=== PATIENT | male | born 1950 | race Caucasian/White ===

== ENCOUNTER 2016-12-03 16:33 | Emergency (ER) | payer SELFPAY ==
[~2016-12-03] VITALS: Wt 68.0 kg
[~2016-12-03 16:33] MED LIST: CEPHALEXIN500 M1 PO; CIPRO500 MG PO; NATURE'S BLEND F1 MG PO; THERA TABS1 TAB PO; VITAMIN B-11 TAB PO
[2016-12-03] MEDS ORDERED: NAPROSYN500 MG PO (17:53)
== END 2016-12-03 18:20 | disposition home or self-care (01) ==
LOC: ED 16:33
DX: S22.32XA Fracture of one rib, left side, initial encounter for closed fracture (principal); S22.31XA Fracture of one rib, right side, initial encounter for closed fracture; S39.013A Strain of muscle, fascia and tendon of pelvis, initial encounter; F12.10 Cannabis abuse, uncomplicated; F17.200 Nicotine dependence, unspecified, uncomplicated; F15.10 Other stimulant abuse, uncomplicated; W18.39XA Other fall on same level, initial encounter; Y93.89 Activity, other specified; Y92.89 Other specified places as the place of occurrence of the external cause; Y99.9 Unspecified external cause status

== ENCOUNTER 2016-12-14 20:10 | Emergency (ER) | payer SELFPAY ==
[~2016-12-14] VITALS: Ht 177.8 cm; Wt 72.6 kg
[~2016-12-14 20:10] MED LIST changes: +NAPROSYN500 MG PO
[2016-12-14 21:07] LABS: BASO # 0.1 10*3/uL (0.0-0.1); BASO % 0.6 % (0.0-1.0); EOS # 0.1 10*3/uL (0.0-0.4); EOS % 0.8 % (1.0-4.0); HEMATOCRIT 39.1 % (42.0-52.0); HEMOGLOBIN 12.8 g/dl (14.0-18.0); IG # 0.1 10*3/uL (0.0-0.1); LYMPH # 1.2 10*3/uL (1.3-4.4); LYMPH % 14.3 % (27.0-41.0); MEAN CELL VOLUME 84.3 fl (80.0-94.0); MEAN CORPUSCULAR HGB 27.6 pg (27.0-31.0); MEAN CORPUSCULAR HGB CONC 32.7 g/dl (33.0-37.0); MEAN PLATELET VOLUME 9.3 fl (9.6-12.3); MONO # 1.3 10*3/uL (0.1-1.0); MONO % 14.9 % (3.0-9.0); NEUT # 5.8 10*3/uL (2.3-7.9); PLATELET COUNT AUTOMATED 198 10*3/uL (130-400); RED BLOOD COUNT 4.64 10*6/uL (4.50-5.90); RED CELL DISTRI WIDTH 15.3 % (0-14.5); WHITE BLOOD COUNT 8.5 10*3/uL (4.8-10.8)
[2016-12-14 21:22] LABS: ALBUMIN 3.3 gm/dl (3.1-4.5); ALKALINE PHOSPHATASE 97 U/L (45-117); BILIRUBIN, TOTAL 0.6 mg/dl (0.2-1.0); BUN 12 mg/dl (7-24); CARBON DIOXIDE 24 mmol/L (21-32); CHLORIDE 92 mmol/L (98-107); EST GLOM FILT AFRICAN AMERICAN > 60 ml/min; GLUCOSE 109 mg/dL (65-99); INTERNATIONAL NORM RATIO 1.1 (2.0-3.5); POTASSIUM 4.3 mmol/L (3.5-5.1); PROTHROMBIN TIME 12.1 SECONDS (9.0-12.4); SGOT/AST 18 IU/L (3-35); SGPT/ALT 12 U/L (12-78); SODIUM 128 mmol/L (136-145); TOTAL PROTEIN 7.7 gm/dL (6.4-8.2)
== END 2016-12-14 23:43 | disposition short-term general hospital (02) ==
LOC: ED 20:10
PROVIDERS: Emergency Medicine Emergency Medical Services
DX: R33.9 Retention of urine, unspecified (principal); R31.9 Hematuria, unspecified; Q54.9 Hypospadias, unspecified; F12.10 Cannabis abuse, uncomplicated; F17.200 Nicotine dependence, unspecified, uncomplicated

== ENCOUNTER → 2017-01-05 | Outpatient (CLI) | payer MEDICARE | END | disposition home or self-care (01) | LOC: LAB 12:45 → MRI 13:00 | DX: Z01.818 Encounter for other preprocedural examination (principal); D40.0 Neoplasm of uncertain behavior of prostate; M54.5 Low back pain; M25.559 Pain in unspecified hip ==

== ENCOUNTER 2017-01-11 17:07 | Inpatient (IN) | payer MEDICARE ==
[~2017-01-11] VITALS: Ht 177.8 cm; Wt 66.5 kg
[2017-01-11 17:10] VITALS: BP 128/76
[2017-01-11] MEDS ORDERED: FLOMAX0.4 MG PO (17:12)
[2017-01-11] MEDS ORDERED: FINASTERIDE5 M1 PO (17:12)
[2017-01-11 18:04] LABS: BASO % 0.4 % (0.0-1.0); EOS # 0.1 10*3/uL (0.0-0.4); EOS % 0.7 % (1.0-4.0); HEMATOCRIT 36.8 % (42.0-52.0); HEMOGLOBIN 11.6 g/dl (14.0-18.0); IG # 0.1 10*3/uL (0.0-0.1); LYMPH # 0.8 10*3/uL (1.3-4.4); LYMPH % 9.3 % (27.0-41.0); MEAN CELL VOLUME 84.6 fl (80.0-94.0); MEAN CORPUSCULAR HGB 26.7 pg (27.0-31.0); MEAN CORPUSCULAR HGB CONC 31.5 g/dl (33.0-37.0); MEAN PLATELET VOLUME 9.5 fl (9.6-12.3); MONO # 0.8 10*3/uL (0.1-1.0); NEUT # 6.4 10*3/uL (2.3-7.9); NEUT % 78.7 % (47.0-73.0); PLATELET COUNT AUTOMATED 227 10*3/uL (130-400); RED BLOOD COUNT 4.35 10*6/uL (4.50-5.90); RED CELL DISTRI WIDTH 14.6 % (0-14.5); WHITE BLOOD COUNT 8.1 10*3/uL (4.8-10.8)
[2017-01-11 18:13] LABS: BILIRUBIN NEGATIVE (NEGATIVE); BLOOD 1+ (NEGATIVE); CLARITY SL CLOUDY (CLEAR); COLOR YELLOW (YELLOW); GLUCOSE NEGATIVE (NEGATIVE); KETONE NEGATIVE (NEGATIVE); LEUKO ESTERASE 3+ (NEGATIVE); NITRITE NEGATIVE (NEGATIVE); PH 6.5 (5.0-9.0); PROTEIN NEGATIVE (NEGATIVE); SPECIFIC GRAVITY <= 1.005 (1.005-1.030); UROBILINOGEN 0.2 E.U./dl (0.2-1.0)
[2017-01-11 18:18] LABS: BACTERIA 4+; RBC 0-2 rbc/hpf (0-2); URINE REFLEX COMMENT YES (NO); WBC TNTC wbc/hpf (0-5)
[2017-01-11 18:20] LABS: ALKALINE PHOSPHATASE 129 U/L (45-117); BILIRUBIN, TOTAL 0.9 mg/dl (0.2-1.0); BUN 8 mg/dl (7-24); CARBON DIOXIDE 27 mmol/L (21-32); CHLORIDE 96 mmol/L (98-107); EST GLOM FILT AFRICAN AMERICAN > 60 ml/min; GLUCOSE 99 mg/dL (65-99); POTASSIUM 3.8 mmol/L (3.5-5.1); SGOT/AST 23 IU/L (3-35); SGPT/ALT 16 U/L (12-78); SODIUM 132 mmol/L (136-145); TOTAL PROTEIN 8.6 gm/dL (6.4-8.2)
[2017-01-11 21:08] VITALS: BP 144/89
[2017-01-12] VITALS: BP 130/75
[2017-01-12 06:40] LABS: BASO % 0.4 % (0.0-1.0); EOS # 0.1 10*3/uL (0.0-0.4); EOS % 1.7 % (1.0-4.0); HEMATOCRIT 32.3 % (42.0-52.0); HEMOGLOBIN 10.3 g/dl (14.0-18.0); IG # 0.1 10*3/uL (0.0-0.1); LYMPH # 0.9 10*3/uL (1.3-4.4); LYMPH % 12.6 % (27.0-41.0); MEAN CELL VOLUME 85.4 fl (80.0-94.0); MEAN CORPUSCULAR HGB 27.2 pg (27.0-31.0); MEAN CORPUSCULAR HGB CONC 31.9 g/dl (33.0-37.0); MEAN PLATELET VOLUME 9.5 fl (9.6-12.3); MONO # 0.8 10*3/uL (0.1-1.0); MONO % 10.7 % (3.0-9.0); NEUT # 5.5 10*3/uL (2.3-7.9); NEUT % 73.4 % (47.0-73.0); PLATELET COUNT AUTOMATED 190 10*3/uL (130-400); RED BLOOD COUNT 3.78 10*6/uL (4.50-5.90); RED CELL DISTRI WIDTH 14.6 % (0-14.5); WHITE BLOOD COUNT 7.5 10*3/uL (4.8-10.8)
[2017-01-12 07:17] LABS: ALBUMIN 2.5 gm/dl (3.1-4.5); ALKALINE PHOSPHATASE 99 U/L (45-117); BILIRUBIN, TOTAL 0.5 mg/dl (0.2-1.0); BUN 12 mg/dl (7-24); CARBON DIOXIDE 27 mmol/L (21-32); CHLORIDE 98 mmol/L (98-107); CHOLESTEROL 85 mg/dL (<200); EST GLOM FILT AFRICAN AMERICAN > 60 ml/min; FREE T4 1.15 ng/dl (0.76-1.46); GLUCOSE 87 mg/dL (65-99); HDL CHOLESTEROL 31 mg/dl (40-60); LDL CHOLESTEROL 37 mg/dL (9-159); MAGNESIUM 1.8 mg/dL (1.5-2.1); PHOSPHOROUS 3.1 mg/dL (2.5-4.9); POTASSIUM 3.7 mmol/L (3.5-5.1); SGOT/AST 16 IU/L (3-35); SGPT/ALT 12 U/L (12-78); SODIUM 134 mmol/L (136-145); TOTAL PROTEIN 7.1 gm/dL (6.4-8.2); TRIGLYCERIDES 85 mg/dl (<150); VLDL CHOLESTEROL 17 mg/dL (6-40)
[2017-01-12 07:24] LABS: HEMOGLOBIN A1c 5.3 % (4.8-5.6); INTERNATIONAL NORM RATIO 1.2 (2.0-3.5); PROTHROMBIN TIME 12.4 SECONDS (9.0-12.4)
[2017-01-12 07:49] LABS: FOLIC ACID 7.88 ng/mL (>5.38); VITAMIN D, 25-HYDROXY 22.7 ng/mL (30-100)
[2017-01-12 08:00] VITALS: BP 118/75
[2017-01-12 12:00] VITALS: BP 116/84; BP 120/82
[2017-01-12 14:50] VITALS: BP 116/84
[2017-01-12 16:00] VITALS: BP 128/67
== END 2017-01-12 20:32 | DRG 535 ==
LOC: ED 17:07 → 4E 20:08 → EDHOLD 20:08 → 4E 20:19
PROVIDERS: Family Medicine; Registered Nurse
DX: S32.501A Unspecified fracture of right pubis, initial encounter for closed fracture (principal); E43 Unspecified severe protein-calorie malnutrition; S32.110A Nondisplaced Zone I fracture of sacrum, initial encounter for closed fracture; E87.8 Other disorders of electrolyte and fluid balance, not elsewhere classified; N30.01 Acute cystitis with hematuria; E87.1 Hypo-osmolality and hyponatremia; F17.200 Nicotine dependence, unspecified, uncomplicated; D64.9 Anemia, unspecified; W06.XXXA Fall from bed, initial encounter; M89.9 Disorder of bone, unspecified; E55.9 Vitamin D deficiency, unspecified; Z83.3 Family history of diabetes mellitus; Y93.89 Activity, other specified; Z71.6 Tobacco abuse counseling; Y92.89 Other specified places as the place of occurrence of the external cause; Y99.8 Other external cause status; Z68.22 Body mass index [BMI] 22.0-22.9, adult; F10.10 Alcohol abuse, uncomplicated; N40.1 Benign prostatic hyperplasia with lower urinary tract symptoms

== ENCOUNTER → 2017-05-06 | Outpatient (CLI) | payer MEDICARE ==
[~2017-05-06] MED LIST changes: +FINASTERIDE5 M1 PO; +FLOMAX0.4 MG PO
== END | disposition home or self-care (01) ==
LOC: US 12:58
DX: K82.8 Other specified diseases of gallbladder (principal)

== ENCOUNTER 2018-03-18 21:53 | Inpatient (IN) | payer MEDICARE ==
[~2018-03-18] VITALS: Ht 177.8 cm; Wt 68.1 kg
--- NOTE | ~2018-03-18 | EKG ---
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
--- NOTE | ~2018-03-18 | PROC NOTE ---
[place], [place] PROCEDURE NOTE NAME: MORENO DOMINGUEZ UNIT #: [id number] ROOM: 427 DOCTOR: QUETA GUTIERREZ BIRTHDATE: [birth year] DOS: 03/24/2018 Unit number 4E. Room number 427, bed 1. ORDERING PHYSICIAN: Milind Harris DO HISTORY: The patient is a 67-year-old male admitted to the ED following a fall in his home. The patient presents with chief complaint of weakness and primary diagnosis of hyponatremia and unable to ambulate. The patient has previous medical history significant for multiple falls. The patient referred for MBS due to patient complains of difficulty swallowing. Chart review shows the patient is afebrile and presents with white blood cell count within normal limits. Per nursing note dated 03/24/2018 "breakfast sandwich removed after starting to cough/questionable aspiration." The patient interviewed prior to initiation of swallow study. He reports difficulty with foods and liquids, stating that he coughs throughout meals. He reports he has been eating less because of this. The patient reports history of alcohol use and smoking. Oral/neck showed oral skills within functional limits and a right-sided lingual deviation. The patient with nonproductive cough at baseline. The patient stated he has upper and lower dentures, but was edentulous during evaluation. METHODS AND MATERIALS: The patient was positioned in the lateral plane and the exam was viewed under fluoroscopy and was videotaped. The patient was administered applesauce with liquid barium, banana with liquid barium, cookie with liquid barium and sips with honey like, nectar like and thin liquid barium. ORAL PHASE: The patient demonstrated oral skills that were within functional limits. Mastication of cookie and banana was appropriate and manipulation of bolus during the oral phase with timely and functional. Premature pharyngeal spillage was observed with trials of thin liquid barium. The patient was asked to contain liquids in his oral cavity until directed to swallow, but liquid contents were observed at the level of the vallecula prior to swallow initiation with liquids via straw and cup. The patient required multiple swallows to clear the oral cavity. Trace amounts of low residue remained. PHARYNGEAL PHASE: The patient demonstrated a pharyngeal phase that is within functional limits, initiation of the pharyngeal swallow was delayed to the level of the vallecula across all consistencies. The patient demonstrated multiple swallows to clear all evaluated consistencies. No penetration or aspiration was observed during trial with applesauce, banana, cookie, honey like, and nectar like consistencies. Trace amounts of penetration were observed during one sip of thin liquid barium via cup. The patient was cued to re-swallow which cleared the laryngeal vestibule. Trace amounts of pharyngeal residue remained following each consistency. ESOPHAGEAL PHASE: The phase was not formally assessed during the examination. IMPRESSION: This patient demonstrates an oropharyngeal swallow that is within functional limits. The patient demonstrated adequate control manipulation during the oral phase with solids and thickened liquids. Premature pharyngeal [place], [place] PROCEDURE NOTE NAME: MORENO DOMINGUEZ UNIT #: [id number] ROOM: 427 DOCTOR: QUETA GUTIERREZ BIRTHDATE: [birth year] entry was observed during sips of thin liquid barium. The patient able to tolerate premature entry. Trace penetration was observed with one sip of thin liquid barium via cup; however, the patient was able to clear material for additional swallows. No penetration or aspiration was observed with remaining consistencies. The patient presents with functional and safe oropharyngeal swallow. RECOMMENDATIONS: The patient is recommended a regular diet with thin liquid. The patient to utilize safe swallowing strategies throughout meals. The patient is upright during all p.o. intake, take small bites and sips and produce volitional cough and throat clear after every 1-2 swallows. ADDITIONAL FOLLOWUP: Speech therapy to follow to ensure tolerance and safety of recommended diet throughout a meal. Treatment to be initiated targeting tongue base and pharyngeal strengthening to further increase safety of swallow. Thank you for your consultation. Queta Gutierrez CM:PROCNOTE:PROCEDURE NOTE [id number] QUETA GUTIERREZ
--- NOTE | ~2018-03-18 | EKG ---
[place], [place] ELECTROCARDIOGRAM REPORT NAME: MORENO DOMINGUEZ UNIT #: [id number] ROOM: 427 DOCTOR: MIRTA DRAFT REPORT BIRTHDATE: [birth year] [facility] Test Date: 2018-03-21 Test Time: 02:44:09 Pat Name: MORENO DOMINGUEZ Department: Room: 427 1 Gender: M [employer] Technician: Cathryn Matos : 1950 Requested By: BRANDIN REYES Order Number: [id number] Reading MD: Howard Lyons MD Measurements Intervals [place] Rate: 91 P: 61 [place]: 127 QRS: 28 QRSD: 76 T: 72 QT: 401 QTc: 494 Interpretive Statements Sinus rhythm Anteroseptal infarct, age indeterminate Compared to ECG 03/18/2018 22:22:50 Myocardial infarct finding now present Sinus tachycardia no longer present Atrial abnormality no longer present Left-axis deviation no longer present Electronically Signed On 03-21-2018 4:18:57 PDT by Howard Lyons MD CM:EKGRPT:ELECTROCARDIOGRAM REPORT [id number] BRANDIN GAUTAM DRAFT REPORT BRANDIN RYEES DO
[2018-03-18 21:59] VITALS: BP 102/72
[2018-03-18 22:26] LABS: BASO % 0.3 % (0.0-1.0); EOS # 0.1 10*3/uL (0.0-0.4); EOS % 0.7 % (1.0-4.0); HEMOGLOBIN 19.6 g/dl (14.0-18.0); LYMPH # 0.8 10*3/uL (1.3-4.4); LYMPH % 6.3 % (27.0-41.0); MEAN CELL VOLUME 84.2 fl (80.0-94.0); MEAN CORPUSCULAR HGB CONC 34.4 g/dl (33.0-37.0); MEAN PLATELET VOLUME 12.3 fl (9.6-12.3); NEUT # 10.1 10*3/uL (2.3-7.9); PLATELET COUNT AUTOMATED 104 10*3/uL (130-400); RED BLOOD COUNT 6.77 10*6/uL (4.50-5.90); RED CELL DISTRI WIDTH 15.7 % (0-14.5); WHITE BLOOD COUNT 12.2 10*3/uL (4.8-10.8)
[2018-03-18 22:30] VITALS: BP 101/73
[2018-03-18 22:38] LABS: ACT PARTIAL THROMBO TIME 33.4 SECONDS (20.8-31.5); INTERNATIONAL NORM RATIO 1.6 (2.0-3.5)
[2018-03-18 22:50] LABS: ALBUMIN 3.5 gm/dl (3.1-4.5); ALKALINE PHOSPHATASE 134 U/L (45-117); BUN 38 mg/dl (7-24); CHLORIDE 81 mmol/L (98-107); CREATININE 2.02 mg/dL (0.70-1.30); LIPASE 270 U/L (73-393); POTASSIUM 5.9 mmol/L (3.5-5.1); SGOT/AST 211 IU/L (3-35); SGPT/ALT 68 U/L (12-78); TOTAL PROTEIN 10.6 gm/dL (6.4-8.2)
[2018-03-18 22:51] LABS: TROPONIN I < 0.015 ng/ml (<0.045)
[2018-03-18 22:52] LABS: SODIUM 114 mmol/L (136-145)
[2018-03-18 23:02] VITALS: BP 100/72
[2018-03-18 23:07] LABS: CPK 3876 U/L (39-308)
[2018-03-18 23:33] VITALS: BP 100/76
[2018-03-19] VITALS (7 sets, daily range): BP systolic 78–115; BP diastolic 50–80
[2018-03-19 03:09] LABS: BASO % 0.1 % (0.0-1.0); EOS % 0.3 % (1.0-4.0); HEMATOCRIT 46.2 % (42.0-52.0); HEMOGLOBIN 15.9 g/dl (14.0-18.0); LYMPH # 0.6 10*3/uL (1.3-4.4); LYMPH % 5.6 % (27.0-41.0); MEAN CELL VOLUME 84.5 fl (80.0-94.0); MEAN CORPUSCULAR HGB 29.1 pg (27.0-31.0); MEAN CORPUSCULAR HGB CONC 34.4 g/dl (33.0-37.0); MEAN PLATELET VOLUME 12.8 fl (9.6-12.3); MONO # 1.2 10*3/uL (0.1-1.0); MONO % 11.2 % (3.0-9.0); NEUT # 8.7 10*3/uL (2.3-7.9); NEUT % 81.5 % (47.0-73.0); PLATELET COUNT AUTOMATED 78 10*3/uL (130-400); RED BLOOD COUNT 5.47 10*6/uL (4.50-5.90); RED CELL DISTRI WIDTH 14.6 % (0-14.5); WHITE BLOOD COUNT 10.7 10*3/uL (4.8-10.8)
[2018-03-19 03:16] LABS: INTERNATIONAL NORM RATIO 1.5 (2.0-3.5)
[2018-03-19 03:39] LABS: ALBUMIN 2.5 gm/dl (3.1-4.5); CREATININE 1.74 mg/dL (0.70-1.30); FREE T4 1.26 ng/dl (0.76-1.46); PHOSPHOROUS 4.5 mg/dL (2.5-4.9); POTASSIUM 5.1 mmol/L (3.5-5.1); TOTAL PROTEIN 7.5 gm/dL (6.4-8.2)
[2018-03-19 03:50] LABS: THYROID STIM HORMONE (HS) 1.88 uIU/ml (0.358-4.75)
[2018-03-19 06:36] LABS: VITAMIN D, 25-HYDROXY 4.7 ng/mL (30-100)
[2018-03-19 08:32] LABS: BILIRUBIN 1+ (NEGATIVE); BLOOD 3+ (NEGATIVE); CLARITY CLOUDY (CLEAR); COLOR YELLOW (YELLOW); GLUCOSE NEGATIVE (NEGATIVE); KETONE TRACE (NEGATIVE); LEUKO ESTERASE 3+ (NEGATIVE); NITRITE NEGATIVE (NEGATIVE); SPECIFIC GRAVITY 1.015 (1.005-1.030)
[2018-03-19 08:39] LABS: RBC TNTC rbc/hpf (0-2); WBC TNTC wbc/hpf (0-5)
[2018-03-19 11:26] LABS: CREATININE 1.52 mg/dL (0.70-1.30); POTASSIUM 4.7 mmol/L (3.5-5.1)
[2018-03-20] VITALS: BP 105/70
[2018-03-20 06:49] LABS: BASO % 0.3 % (0.0-1.0); HEMATOCRIT 41.2 % (42.0-52.0); HEMOGLOBIN 13.9 g/dl (14.0-18.0); LYMPH # 0.9 10*3/uL (1.3-4.4); LYMPH % 15.8 % (27.0-41.0); MEAN CELL VOLUME 85.8 fl (80.0-94.0); MEAN CORPUSCULAR HGB CONC 33.7 g/dl (33.0-37.0); MEAN PLATELET VOLUME 11.8 fl (9.6-12.3); MONO # 0.8 10*3/uL (0.1-1.0); MONO % 14.2 % (3.0-9.0); PLATELET COUNT AUTOMATED 77 10*3/uL (130-400); RED CELL DISTRI WIDTH 14.6 % (0-14.5); WHITE BLOOD COUNT 5.9 10*3/uL (4.8-10.8)
[2018-03-20 06:57] LABS: CHLORIDE 95 mmol/L (98-107); CREATININE 0.89 mg/dL (0.70-1.30); PHOSPHOROUS 2.8 mg/dL (2.5-4.9); SODIUM 125 mmol/L (136-145)
[2018-03-20 06:59] LABS: BUN 21 mg/dl (7-24); POTASSIUM 3.7 mmol/L (3.5-5.1)
[2018-03-20 08:00] VITALS: BP 96/68
[2018-03-20 12:00] VITALS: BP 96/56
[2018-03-20 16:00] VITALS: BP 96/67
[2018-03-20 20:00] VITALS: BP 111/70; BP 130/65
[2018-03-21] VITALS: BP 102/66
[2018-03-21 06:02] LABS: BASO % 0.3 % (0.0-1.0); EOS % 0.2 % (1.0-4.0); HEMATOCRIT 38.9 % (42.0-52.0); HEMOGLOBIN 12.9 g/dl (14.0-18.0); LYMPH # 0.7 10*3/uL (1.3-4.4); LYMPH % 10.5 % (27.0-41.0); MEAN CELL VOLUME 87.4 fl (80.0-94.0); MEAN CORPUSCULAR HGB CONC 33.2 g/dl (33.0-37.0); MEAN PLATELET VOLUME 11.9 fl (9.6-12.3); MONO % 14.9 % (3.0-9.0); NEUT # 4.8 10*3/uL (2.3-7.9); NEUT % 72.9 % (47.0-73.0); PLATELET COUNT AUTOMATED 71 10*3/uL (130-400); RED BLOOD COUNT 4.45 10*6/uL (4.50-5.90); WHITE BLOOD COUNT 6.6 10*3/uL (4.8-10.8)
[2018-03-21 06:22] LABS: CHLORIDE 102 mmol/L (98-107); CREATININE 0.71 mg/dL (0.70-1.30); POTASSIUM 3.5 mmol/L (3.5-5.1); SGOT/AST 100 IU/L (3-35); SGPT/ALT 54 U/L (12-78); SODIUM 131 mmol/L (136-145)
[2018-03-21 06:26] LABS: PHOSPHOROUS 2.5 mg/dL (2.5-4.9)
[2018-03-21 06:27] LABS: CPK 581 U/L (39-308)
[2018-03-21 06:30] LABS: BUN 9 mg/dl (7-24)
[2018-03-21 08:00] VITALS: BP 106/58
[2018-03-21 12:00] VITALS: BP 90/45
[2018-03-21 16:00] VITALS: BP 87/50
[2018-03-21 16:42] VITALS: BP 106/76
[2018-03-21 20:00] VITALS: BP 103/74
[2018-03-22] VITALS: BP 104/62
[2018-03-22 08:00] VITALS: BP 117/74
[2018-03-22 08:50] LABS: BASO % 0.5 % (0.0-1.0); EOS % 0.5 % (1.0-4.0); HEMATOCRIT 37.9 % (42.0-52.0); HEMOGLOBIN 12.5 g/dl (14.0-18.0); LYMPH # 0.6 10*3/uL (1.3-4.4); MEAN CELL VOLUME 88.3 fl (80.0-94.0); MEAN CORPUSCULAR HGB 29.1 pg (27.0-31.0); MEAN PLATELET VOLUME 11.3 fl (9.6-12.3); MONO % 15.2 % (3.0-9.0); NEUT # 4.6 10*3/uL (2.3-7.9); NEUT % 73.4 % (47.0-73.0); RED BLOOD COUNT 4.29 10*6/uL (4.50-5.90); RED CELL DISTRI WIDTH 15.3 % (0-14.5); WHITE BLOOD COUNT 6.3 10*3/uL (4.8-10.8)
[2018-03-22 08:51] LABS: PLATELET COUNT AUTOMATED 105 10*3/uL (130-400)
[2018-03-22 09:03] LABS: ALBUMIN 1.9 gm/dl (3.1-4.5); ALKALINE PHOSPHATASE 108 U/L (45-117); BUN 4 mg/dl (7-24); CHLORIDE 107 mmol/L (98-107); CREATININE 0.62 mg/dL (0.70-1.30); LIPASE 157 U/L (73-393); PHOSPHOROUS 1.8 mg/dL (2.5-4.9); POTASSIUM 3.3 mmol/L (3.5-5.1); SGOT/AST 93 IU/L (3-35); SGPT/ALT 56 U/L (12-78); SODIUM 137 mmol/L (136-145)
[2018-03-22 09:06] LABS: INTERNATIONAL NORM RATIO 1.1 (2.0-3.5)
[2018-03-22 12:00] VITALS: BP 115/92
[2018-03-22 16:00] VITALS: BP 110/72
[2018-03-22 20:00] VITALS: BP 119/73
[2018-03-23] VITALS: BP 98/54
[2018-03-23 06:51] LABS: BASO % 0.5 % (0.0-1.0); EOS % 0.3 % (1.0-4.0); HEMATOCRIT 37.1 % (42.0-52.0); HEMOGLOBIN 12.4 g/dl (14.0-18.0); LYMPH # 0.6 10*3/uL (1.3-4.4); LYMPH % 10.2 % (27.0-41.0); MEAN CELL VOLUME 87.5 fl (80.0-94.0); MEAN CORPUSCULAR HGB 29.2 pg (27.0-31.0); MEAN CORPUSCULAR HGB CONC 33.4 g/dl (33.0-37.0); MEAN PLATELET VOLUME 10.9 fl (9.6-12.3); MONO % 15.7 % (3.0-9.0); NEUT # 4.4 10*3/uL (2.3-7.9); NEUT % 72.2 % (47.0-73.0); PLATELET COUNT AUTOMATED 115 10*3/uL (130-400); RED BLOOD COUNT 4.24 10*6/uL (4.50-5.90); RED CELL DISTRI WIDTH 14.9 % (0-14.5); WHITE BLOOD COUNT 6.2 10*3/uL (4.8-10.8)
[2018-03-23 07:25] LABS: BUN 3 mg/dl (7-24); CHLORIDE 105 mmol/L (98-107); SGOT/AST 59 IU/L (3-35); SGPT/ALT 44 U/L (12-78); SODIUM 136 mmol/L (136-145)
[2018-03-23 07:36] LABS: ALKALINE PHOSPHATASE 102 U/L (45-117); CREATININE 0.63 mg/dL (0.70-1.30); LIPASE 110 U/L (73-393); TOTAL PROTEIN 5.9 gm/dL (6.4-8.2)
[2018-03-23 12:00] VITALS: BP 115/75
[2018-03-23 16:00] VITALS: BP 114/78
[2018-03-23 20:00] VITALS: BP 108/70
[2018-03-24] VITALS: BP 117/82
[2018-03-24 06:28] LABS: BASO % 0.3 % (0.0-1.0); EOS # 0.1 10*3/uL (0.0-0.4); EOS % 0.7 % (1.0-4.0); HEMATOCRIT 37.3 % (42.0-52.0); HEMOGLOBIN 12.4 g/dl (14.0-18.0); LYMPH # 0.8 10*3/uL (1.3-4.4); LYMPH % 11.7 % (27.0-41.0); MEAN CORPUSCULAR HGB 29.6 pg (27.0-31.0); MEAN CORPUSCULAR HGB CONC 33.2 g/dl (33.0-37.0); MEAN PLATELET VOLUME 10.1 fl (9.6-12.3); MONO # 1.2 10*3/uL (0.1-1.0); MONO % 17.4 % (3.0-9.0); NEUT # 4.6 10*3/uL (2.3-7.9); NEUT % 68.9 % (47.0-73.0); PLATELET COUNT AUTOMATED 132 10*3/uL (130-400); RED BLOOD COUNT 4.19 10*6/uL (4.50-5.90); RED CELL DISTRI WIDTH 15.2 % (0-14.5); WHITE BLOOD COUNT 6.7 10*3/uL (4.8-10.8)
[2018-03-24 06:42] LABS: ALBUMIN 1.8 gm/dl (3.1-4.5); ALKALINE PHOSPHATASE 106 U/L (45-117); BUN 2 mg/dl (7-24); CHLORIDE 106 mmol/L (98-107); LIPASE 157 U/L (73-393); POTASSIUM 3.3 mmol/L (3.5-5.1); SGOT/AST 65 IU/L (3-35); SGPT/ALT 46 U/L (12-78); SODIUM 137 mmol/L (136-145); TOTAL PROTEIN 5.9 gm/dL (6.4-8.2)
[2018-03-24 07:15] LABS: CPK 342 U/L (39-308)
[2018-03-24 07:40] VITALS: BP 124/60
[2018-03-24 08:00] VITALS: BP 112/60
[2018-03-24 12:00] VITALS: BP 117/67
[2018-03-24 16:00] VITALS: BP 110/74
[2018-03-24 20:00] VITALS: BP 104/64
[2018-03-25 00:54] VITALS: BP 115/74
[2018-03-25 07:14] LABS: BASO % 0.6 % (0.0-1.0); EOS # 0.1 10*3/uL (0.0-0.4); EOS % 1.3 % (1.0-4.0); HEMATOCRIT 36.9 % (42.0-52.0); HEMOGLOBIN 12.3 g/dl (14.0-18.0); LYMPH # 0.8 10*3/uL (1.3-4.4); LYMPH % 11.9 % (27.0-41.0); MEAN CELL VOLUME 88.3 fl (80.0-94.0); MEAN CORPUSCULAR HGB 29.4 pg (27.0-31.0); MEAN CORPUSCULAR HGB CONC 33.3 g/dl (33.0-37.0); MEAN PLATELET VOLUME 10.8 fl (9.6-12.3); MONO % 15.3 % (3.0-9.0); NEUT # 4.4 10*3/uL (2.3-7.9); NEUT % 69.5 % (47.0-73.0); PLATELET COUNT AUTOMATED 158 10*3/uL (130-400); RED BLOOD COUNT 4.18 10*6/uL (4.50-5.90); WHITE BLOOD COUNT 6.4 10*3/uL (4.8-10.8)
[2018-03-25 07:25] LABS: ALBUMIN 1.9 gm/dl (3.1-4.5); CHLORIDE 101 mmol/L (98-107); POTASSIUM 3.1 mmol/L (3.5-5.1); SODIUM 133 mmol/L (136-145)
[2018-03-25 07:30] LABS: ALKALINE PHOSPHATASE 108 U/L (45-117); BUN 2 mg/dl (7-24); CREATININE 0.56 mg/dL (0.70-1.30); SGOT/AST 57 IU/L (3-35); SGPT/ALT 48 U/L (12-78); TOTAL PROTEIN 6.1 gm/dL (6.4-8.2)
[2018-03-25 08:00] VITALS: BP 110/70
[2018-03-25 12:00] VITALS: BP 134/67
[2018-03-25 16:00] VITALS: BP 96/58
[2018-03-25 20:00] VITALS: BP 129/82
[2018-03-26] VITALS: BP 113/67
[2018-03-26 06:51] LABS: BASO % 0.6 % (0.0-1.0); EOS % 0.6 % (1.0-4.0); HEMOGLOBIN 12.2 g/dl (14.0-18.0); LYMPH # 0.9 10*3/uL (1.3-4.4); LYMPH % 13.1 % (27.0-41.0); MEAN CELL VOLUME 89.8 fl (80.0-94.0); MEAN CORPUSCULAR HGB 28.8 pg (27.0-31.0); MEAN CORPUSCULAR HGB CONC 32.1 g/dl (33.0-37.0); MEAN PLATELET VOLUME 10.2 fl (9.6-12.3); MONO # 1.1 10*3/uL (0.1-1.0); MONO % 16.8 % (3.0-9.0); NEUT # 4.6 10*3/uL (2.3-7.9); NEUT % 67.6 % (47.0-73.0); PLATELET COUNT AUTOMATED 180 10*3/uL (130-400); RED BLOOD COUNT 4.23 10*6/uL (4.50-5.90); WHITE BLOOD COUNT 6.7 10*3/uL (4.8-10.8)
[2018-03-26 07:45] LABS: ALBUMIN 1.8 gm/dl (3.1-4.5); ALKALINE PHOSPHATASE 111 U/L (45-117); BUN 3 mg/dl (7-24); CHLORIDE 102 mmol/L (98-107); CREATININE 0.57 mg/dL (0.70-1.30); POTASSIUM 3.9 mmol/L (3.5-5.1); SGOT/AST 55 IU/L (3-35); SGPT/ALT 45 U/L (12-78); SODIUM 136 mmol/L (136-145); TOTAL PROTEIN 6.4 gm/dL (6.4-8.2)
[2018-03-26 08:00] VITALS: BP 90/52
[2018-03-26 12:00] VITALS: BP 112/71
[2018-03-26 16:00] VITALS: BP 104/70
[2018-03-26 20:00] VITALS: BP 101/66
[2018-03-27] VITALS: BP 139/77
[2018-03-27 08:00] VITALS: BP 119/74
[2018-03-27] MEDS ORDERED: KLOR-CON M2020 ME1 PO (10:32)
[2018-03-27] MEDS ORDERED: NATURE'S BLEND100 M2 PO (10:32)
[2018-03-27] MEDS ORDERED: Ipratropium Brom3 ML NEB (10:32)
== END 2018-03-27 13:35 | disposition other institution (70) | DRG 463 ==
LOC: ED 21:53 → EDHOLD 23:46 → 4E 23:46
PROVIDERS: Emergency Medicine; Family Medicine; Internal Medicine; Internal Medicine Nephrology; Nurse Practitioner Family; Student in an Organized Health Care Education/Training Program
PROC: 0JB90ZZ Excision of Buttock Subcutaneous Tissue and Fascia, Open Approach (ICD-10-PCS; principal; 2018-03-23)
PROC: BD1BYZZ Fluoroscopy of Mouth/Oropharynx using Other Contrast (ICD-10-PCS; 2018-03-24)
DX: T79.6XXA Traumatic ischemia of muscle, initial encounter (principal); N17.0 Acute kidney failure with tubular necrosis; R65.11 Systemic inflammatory response syndrome (SIRS) of non-infectious origin with acute organ dysfunction; E43 Unspecified severe protein-calorie malnutrition; E87.1 Hypo-osmolality and hyponatremia; F10.239 Alcohol dependence with withdrawal, unspecified; N13.30 Unspecified hydronephrosis; E87.2 Acidosis; I95.9 Hypotension, unspecified; R26.2 Difficulty in walking, not elsewhere classified; D75.1 Secondary polycythemia; E86.0 Dehydration; K82.8 Other specified diseases of gallbladder; E87.6 Hypokalemia; K80.20 Calculus of gallbladder without cholecystitis without obstruction; F17.210 Nicotine dependence, cigarettes, uncomplicated; E87.5 Hyperkalemia; D72.829 Elevated white blood cell count, unspecified; D69.6 Thrombocytopenia, unspecified; W18.39XA Other fall on same level, initial encounter; R79.1 Abnormal coagulation profile; L89.312 Pressure ulcer of right buttock, stage 2; R00.0 Tachycardia, unspecified; E55.9 Vitamin D deficiency, unspecified; K70.30 Alcoholic cirrhosis of liver without ascites; N40.0 Benign prostatic hyperplasia without lower urinary tract symptoms; Y90.9 Presence of alcohol in blood, level not specified; Z87.440 Personal history of urinary (tract) infections; Z87.81 Personal history of (healed) traumatic fracture; Z83.3 Family history of diabetes mellitus; Z80.3 Family history of malignant neoplasm of breast; Z68.21 Body mass index [BMI] 21.0-21.9, adult; Y93.89 Activity, other specified; Y92.89 Other specified places as the place of occurrence of the external cause; Y99.8 Other external cause status

== ENCOUNTER → 2018-06-12 | Outpatient (CLI) | payer MEDICARE ==
[~2018-06-12] MED LIST changes: +Ipratropium Brom3 ML NEB; +KLOR-CON M2020 ME1 PO; +NATURE'S BLEND100 M2 PO
== END | disposition home or self-care (01) ==
LOC: US 05-23 15:00
DX: K80.20 Calculus of gallbladder without cholecystitis without obstruction (principal); N13.30 Unspecified hydronephrosis; L89.159 Pressure ulcer of sacral region, unspecified stage; Z72.0 Tobacco use

== ENCOUNTER → 2018-10-25 | Outpatient (CLI) | payer OTHER ==
[~2018-10-25] MED LIST changes: +ECPIRIN325 MG PO; +Lovenox40 MG/0.4 SC; +OXYCODONE HCL5 MG PO; +PREDNISONE10 MG PO; +PROVENTIL HFA6.7 GM INH; +TAMSULOSIN HCL0.4 MG PO; +VITAMIN D5000 UNI1 PO
== END | disposition home or self-care (01) ==
LOC: RAD 15:57
DX: J44.1 Chronic obstructive pulmonary disease with (acute) exacerbation (principal); Z72.0 Tobacco use

== ENCOUNTER → 2019-01-24 | Outpatient (CLI) | payer OTHER | END | disposition home or self-care (01) | LOC: ORTHO 13:29 | DX: S72.002D Fracture of unspecified part of neck of left femur, subsequent encounter for closed fracture with routine healing (principal); M16.11 Unilateral primary osteoarthritis, right hip; X58.XXXD Exposure to other specified factors, subsequent encounter ==

== ENCOUNTER → 2019-03-28 | Outpatient (CLI) | payer OTHER | END | disposition home or self-care (01) | LOC: ORTHO 00:08 | DX: S72.002D Fracture of unspecified part of neck of left femur, subsequent encounter for closed fracture with routine healing (principal); X58.XXXD Exposure to other specified factors, subsequent encounter ==

== ENCOUNTER → 2019-04-12 | Outpatient (CLI) | payer OTHER ==
[2019-04-12 12:08] LABS: HEMATOCRIT 45.6 % (42.0-52.0); HEMOGLOBIN 13.9 g/dl (14.0-18.0); MEAN CELL VOLUME 79.7 fl (80.0-94.0); MEAN CORPUSCULAR HGB 24.3 pg (27.0-31.0); MEAN CORPUSCULAR HGB CONC 30.5 g/dl (33.0-37.0); MEAN PLATELET VOLUME 9.8 fl (9.6-12.3); RED BLOOD COUNT 5.72 10*6/uL (4.50-5.90); RED CELL DISTRI WIDTH 17.6 % (0-14.5); WHITE BLOOD COUNT 8.2 10*3/uL (4.8-10.8)
[2019-04-12 12:38] LABS: ALBUMIN 3.8 gm/dl (3.1-4.5); ALKALINE PHOSPHATASE 62 U/L (45-117); BUN 12 mg/dl (7-24); CHLORIDE 101 mmol/L (98-107); CHOLESTEROL 130 mg/dL (<200); CREATININE 0.92 mg/dL (0.70-1.30); HDL CHOLESTEROL 62 mg/dl (40-60); LDL CHOLESTEROL 56 mg/dL (9-159); POTASSIUM 4.3 mmol/L (3.5-5.1); SGOT/AST 17 IU/L (3-35); SGPT/ALT 22 U/L (12-78); SODIUM 136 mmol/L (136-145); TOTAL PROTEIN 7.3 gm/dL (6.4-8.2); TRIGLYCERIDES 58 mg/dl (<150); VLDL CHOLESTEROL 12 mg/dL (6-40)
== END | disposition home or self-care (01) ==
LOC: LAB 10:59
PROVIDERS: Physician Assistant
DX: Z12.5 Encounter for screening for malignant neoplasm of prostate (principal); J44.9 Chronic obstructive pulmonary disease, unspecified; K70.30 Alcoholic cirrhosis of liver without ascites; R35.0 Frequency of micturition; Z79.899 Other long term (current) drug therapy; Z72.0 Tobacco use

== ENCOUNTER 2019-08-01 18:14 | Emergency (ER) | payer OTHER ==
[~2019-08-01] VITALS: Ht 177.8 cm; Wt 73.0 kg
[2019-08-01 18:58] LABS: BASO # 0.1 10*3/uL (0.0-0.1); BASO % 0.5 % (0.0-1.0); EOS # 0.1 10*3/uL (0.0-0.4); EOS % 1.3 % (1.0-4.0); HEMATOCRIT 32.2 % (42.0-52.0); HEMOGLOBIN 10.2 g/dl (14.0-18.0); LYMPH # 0.7 10*3/uL (1.3-4.4); LYMPH % 6.9 % (27.0-41.0); MEAN CELL VOLUME 85.2 fl (80.0-94.0); MEAN CORPUSCULAR HGB CONC 31.7 g/dl (33.0-37.0); MEAN PLATELET VOLUME 9.5 fl (9.6-12.3); MONO # 1.3 10*3/uL (0.1-1.0); MONO % 11.8 % (3.0-9.0); NEUT # 8.4 10*3/uL (2.3-7.9); NEUT % 78.5 % (47.0-73.0); PLATELET COUNT AUTOMATED 237 10*3/uL (130-400); RED BLOOD COUNT 3.78 10*6/uL (4.50-5.90); WHITE BLOOD COUNT 10.7 10*3/uL (4.8-10.8)
[2019-08-01 19:08] LABS: ACT PARTIAL THROMBO TIME 29.6 SECONDS (20.0-32.1); INTERNATIONAL NORM RATIO 1.1 (2.0-3.5)
[2019-08-01 19:19] LABS: ALBUMIN 3.1 gm/dl (3.1-4.5); ALKALINE PHOSPHATASE 110 U/L (45-117); BUN 11 mg/dl (7-24); CHLORIDE 102 mmol/L (98-107); CREATININE 1.16 mg/dL (0.70-1.30); POTASSIUM 4.3 mmol/L (3.5-5.1); SGOT/AST 19 IU/L (3-35); SGPT/ALT 20 U/L (12-78); SODIUM 133 mmol/L (136-145); TOTAL PROTEIN 7.4 gm/dL (6.4-8.2)
[2019-08-01] MEDS ORDERED: TRAMADOL HCL50 MG PO (20:31)
[2019-08-01] MEDS ORDERED: IBUPROFEN600 MG PO (20:31)
== END 2019-08-01 21:12 | disposition home or self-care (01) ==
LOC: ED 18:14
PROVIDERS: Emergency Medicine
DX: M25.552 Pain in left hip (principal); R05 Cough; J44.9 Chronic obstructive pulmonary disease, unspecified; R79.1 Abnormal coagulation profile; F17.210 Nicotine dependence, cigarettes, uncomplicated; W17.89XA Other fall from one level to another, initial encounter; Y93.89 Activity, other specified; Y92.098 Other place in other non-institutional residence as the place of occurrence of the external cause; Y99.8 Other external cause status